=== PATIENT | female | born 1990 | race Caucasian/White ===

== ENCOUNTER 2023-02-21 15:25 | Emergency (ER) | payer SELFPAY ==
--- OUTSIDE RECORDS SUMMARY | 2023-02-21 15:42 | XMS REPORT | Continuity of Care Document ---
:1990 Author Organization [facility] t Address [address] [place] [address] Care Team Providers Name Role Phone Eri Parra Attending Clinician Unavailable Chavez Schneider Attending Clinician Unavailable Venkat Roque Attending Clinician Unavailable Diana Alcantar Attending Clinician Unavailable Ramon Breen Attending Clinician Unavailable SIDNEY CHAIREZ Attending Clinician Unavailable YONI SANDOVAL Attending Clinician Unavailable JAM HOWARD Attending Clinician Unavailable BENJIE AGARWAL Attending Clinician Unavailable TYRONE SZYMANSKI Attending Clinician Unavailable Problems This patient has no known problems. Allergies, Adverse Reactions, Alerts This patient has no known allergies or adverse reactions. Medications This patient has no known medications. Procedures This patient has no known procedures. Encounters Start End Encounter Admission Attending Care Care Encounter Source Date/Time Date/Time Type Type Clinicians Facility Department ID 2022-12-31 Inpatient [facility] [id number] [facility] 11:25:24 [id number] [place] 2022-12-21 Inpatient [facility] [id number] [facility] 09:41:14 [id number] [place] 2022-12-13 2022-12-13 Emergency ER Fidel [facility] [id number] [place] 22:46:00 23:31:00 Eri -[id number] Counts include 234 beds at the [facility] 2022-09-30 2022-09-30 Emergency ER Wyatt [facility] [id number] [place] 17:01:00 20:02:00 Chavez [id number] Counts include 234 beds at the [facility] 2022-05-28 2022-05-28 Emergency ER Jude [facility] [id number] [place] 00:30:00 01:30:00 Venkat -[id number] Counts include 234 beds at the [facility] 2022-04-13 2022-04-14 Emergency ER Catanescu, [facility] [id number] [place] 21:03:00 00:31:00 Diana -[id number] Counts include 234 beds at the [facility] 2022-02-28 2022-02-28 Emergency ER Catanescu, [facility] [id number] [place] 13:28:00 14:14:00 Diana -[id number] Counts include 234 beds at the [facility] 2022-01-26 2022-01-26 Emergency ER , [facility] [id number] [place] 06:27:00 08:04:00 Ramon -[id number] Counts include 234 beds at the [facility] 2021-11-30 2021-11-30 Emergency ER MIHAELA, [facility] [id number] [place] 20:35:00 21:02:00 SIDNEY -[id number] Counts include 234 beds at the [facility] 2021-10-03 2021-10-03 Emergency ER JAIME, [facility] [id number] [place] 12:06:00 12:44:00 YONI -[id number] Counts include 234 beds at the [facility] 2021-08-09 2021-08-09 Emergency ER ANITA, [facility] [id number] [place] 12:31:00 13:27:00 JAM -[id number] Counts include 234 beds at the [facility] 2021-05-24 2021-05-24 Emergency ER JAIME, [facility] [id number] [place] 14:21:00 16:55:00 YONI -[id number] Counts include 234 beds at the [facility] 2017-08-11 2017-08-11 Emergency ER STEFANO, [facility] [id number] [place] 22:05:00 23:21:00 BENJIE -[id number] Counts include 234 beds at the [facility] 2017-01-15 2017-01-15 Emergency ER , [facility] [id number] [place] 18:29:00 19:24:00 WAS -[id number] Counts include 234 beds at the [facility] Results This patient has no known results.
[2023-02-21 16:17] LABS: Specific Gravity 1.027 (1.005-1.030); Urine Bacteria <20 /HPF (<20); Urine Bilirubin NEGATIVE (Negative); Urine Blood Negative (Negative); Urine Clarity Clear (Clear); Urine Color Yellow (Yellow); Urine Crystals Unidentified Few /HPF (None Seen); Urine Glucose NEGATIVE (Negative); Urine Mucus 2+ /HPF (None Seen); Urine Protein TRACE (Negative); Urine RBC <5 /HPF (None Seen); Urine Urobilinogen Normal (Normal); Urine WBC Clump Rare /HPF (None Seen); Urine pH 5.5 (5.0-7.0)
--- NOTE | 2023-02-21 17:15 | ER ---
Nurse's Notes [facility] Name: Dayami Houston Age: 32 yrs Sex: Female : 1990 Arrival Date: 02/21/2023 Time: 15:25 Bed IW2 Private MD: Diagnosis: Low back pain;Pain in throat Presentation: 02/21 15:37 Chief complaint: Patient states: she is having low back pain that started a couple of ap3 weeks ago and sore throat that started approx one week ago. Coronavirus screen: At this time, the client does not indicate any symptoms associated with coronavirus-19. Ebola Screen: No symptoms or risks identified at this time. Initial Sepsis Screen:. Initial Sepsis Screen: Does the patient meet any 2 criteria? No. Patient's initial sepsis screen is negative. Does the patient have a suspected source of infection? No. Patient's initial sepsis screen is negative. Risk Assessment: Do you want to hurt yourself or someone else? Patient reports no desire to harm self or others. Onset of symptoms was 2022. 15:37 Method Of Arrival: Ambulatory ap3 15:37 Acuity: TRI 3 ap3 17:13 Note attempted to call patient at 1605 and 1652 for labs. patient was not found in ap3 lobby. Triage Assessment: 15:40 General: Appears in no apparent distress. Behavior is anxious. Pain: Complains of pain ap3 in low back area \T\ throat. Neuro: Level of Consciousness is awake, alert, obeys commands, Oriented to person, place, time, situation. Cardiovascular: Patient's skin is warm and dry. Respiratory: Airway is patent Respiratory effort is even, unlabored, Respiratory pattern is regular, symmetrical. Musculoskeletal: Range of motion: intact in all extremities. 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 - Social history:: Smoking status: Patient reports the use of cigarette tobacco products, denies chronic smoking, but will smoke occasionally. Screenin:41 [facility] ED Fall Risk Assessment (Adult) History of falling in the last 3 months, ap3 including since admission No falls in past 3 months (0 pts). Abuse screen: Denies threats or abuse. Nutritional screening: No deficits noted. Tuberculosis screening: No symptoms or risk factors identified. Vital Signs: 15:37 BP 131 / 81; Pulse 112; Resp 18; Temp 98.5; Pulse Ox 100% ; Weight 58.97 kg; ap3 ED Course: 15:28 Patient arrived in ED. mr 15:29 Katarina Devine FNP-C is [facility]. ap3 15:39 Triage completed. ap3 15:41 Tramaine Euceda MD is Attending Physician. kb 15:41 Arm band placed on right wrist. ap3 16:05 Urinalysis w/ reflexes Sent. zm 16:05 Test, Urine Sent. zm Administered Medications: No medications were administered Outcome: 17:14 Discharge ordered by . kb 17:30 Patient left the ED. Signatures: Katarina Devine FNP-C FNP-Ckb Rivera Lizbeth GriffithDayami, RN RN ap3 Bridgette Emanuel
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
[2023-02-21 17:58] VITALS: BP 131/81; TEMP 98.5; O2SAT 100
== END 2023-02-21 17:30 | disposition home or self-care (01) ==
LOC: ER 15:25
DX: M54.50 Low back pain, unspecified (principal); R07.0 Pain in throat
CPT/HCPCS: 81001; 81025; 99282

== ENCOUNTER 2023-08-11 21:16 | Emergency (ER) | payer SELFPAY ==
--- OUTSIDE RECORDS SUMMARY | 2023-08-11 21:19 | XMS REPORT | Continuity of Care Document ---
:1990 Author Organization [facility] t Address [address] [place] [id number] Care Team Providers Name Role Phone STEFFI ADLER Attending Clinician Unavailable Eri Parra Attending Clinician Unavailable CARMEN BARTLETT Attending Clinician Unavailable WENDY CARY Attending Clinician Unavailable CIRO SALCIDO Attending Clinician Unavailable SIDNEY CHAIREZ MD(DO NOT USE) Attending Clinician UnavailYONI Diehl Attending Clinician Unavailable JAM HOWARD Attending Clinician [...] Type Clinicians Facility Department ID 2022-12-31 Inpatient [facility] [id number] [facility] 11:25:24 [id number] [place] 2022-12-21 Inpatient [facility] [id number] [facility] 09:41:14 [id number] [place] 2023-05-01 2023-05-01 Emergency ER NAYELY, [facility] [id number] [place] 20:38:00 21:20:00 STEFFI -[id number] Formerly [facility] 2022-12-13 2022-12-13 Emergency ER Fidel [facility] [id number] [place] 22:46:00 23:31:00 Eri -[id number] Former[facility] 2022-09-30 2022-09-30 Emergency ER TRI [facility] [id number] [place] 17:01:00 20:02:00 CARMEN -[id number] Former[facility] 2022-05-28 2022-05-28 Emergency ER LUIS DANIEL, [facility] [id number] [place] 00:30:00 01:30:00 WENDY -[id number] Formerly [facility] 2022-04-13 2022-04-14 Emergency ER CATANESCU, [facility] [id number] [place] 21:03:00 00:31:00 STEFFI -[id number] Former[facility] 2022-02-28 2022-02-28 Emergency ER CATANESCU, [facility] [id number] [place] 13:28:00 14:14:00 STEFFI -[id number] Former[facility] 2022-01-26 2022-01-26 Emergency ER , [facility] [id number] [place] 06:27:00 08:04:00 CIRO -[id number] [facility] 2021-11-30 2021-11-30 Emergency ER MIHAELA, [facility] [id number] [place] 20:35:00 21:02:00 SIDNEY -[id number] [facility] 2021-10-03 2021-10-03 Emergency ER JAIME, [facility] [id number] [place] 12:06:00 12:44:00 YONI -[id number] [facility] 2021-08-09 2021-08-09 Emergency ER HOWARD, [facility] [id number] [place] 12:31:00 13:27:00 JAM -[id number] [facility] 2021-05-24 2021-05-24 Emergency ER SANDOVAL, [facility] [id number] [place] 14:21:00 16:55:00 YONI -[id number] [facility] 2017-08-11 2017-08-11 Emergency ER STEFANO, [facility] [id number] [place] 22:05:00 23:21:00 BENJIE [id number] [facility] 2017-01-15 2017-01-15 Emergency ER , [facility] [id number] [place] 18:29:00 19:24:00 TYRONE -[id number] [facility] Results This patient has no known results.
[2023-08-11 22:05] LABS: Absolute Lymphocytes (CBC) 2.4 K/uL (0.7-4.9); Hematocrit 34.4 % (36.0-45.0); Lymphocytes % 23.2 % (15.3-44.8); MCV 85.9 fL (80-100); Platelets 378 thou/uL (152-406); RBC Red Blood Cell Count 4.01 M/uL (3.86-4.86)
[2023-08-11 22:11] LABS: Methadone ND (NEGATIVE)
[2023-08-11] MEDS ORDERED: ONDANSETRON 4 MG/2 ML VIAL ONE (22:11)
[2023-08-11] MEDS ORDERED: FAMOTIDINE 20 MG/2 ML VIAL IV ONE (22:11)
[2023-08-11] MEDS ORDERED: MORPHINE 4 MG/ML SYR ONE (22:11)
[2023-08-11] MEDS ORDERED: NA CHLORIDE 0.9% 1,000 ML ONE (22:11)
[2023-08-11 22:12] LABS: Urine Bacteria <20 /HPF (<20); Urine Bilirubin NEGATIVE (Negative); Urine Blood Negative (Negative); Urine Clarity Extremely Turbid (Clear); Urine Color Yellow (Yellow); Urine Glucose NEGATIVE (Negative); Urine Mucus 4+ /HPF (None Seen); Urine Protein 1+ (Negative); Urine RBC <5 /HPF (None Seen); Urine Urobilinogen Normal (Normal); Urine pH 6.5 (5.0-7.0)
[2023-08-11 22:14] LABS: Barbiturates NEGATIVE (NEGATIVE); Benzodiazepines NEGATIVE (NEGATIVE); Cocaine NEGATIVE (NEGATIVE); METHAMPHETAM POSITIVE (NEGATIVE); Opiates NEGATIVE (NEGATIVE); Phencyclidine NEGATIVE (NEGATIVE); THC Cannibis NEGATIVE (NEGATIVE)
[2023-08-11 22:33] LABS: Albumin 3.5 g/dL (3.4-5.0); Bilirubin Total 0.1 mg/dL (0.2-1.0); Protein, Total 7.6 g/dL (6.4-8.2)
--- NOTE | 2023-08-11 22:37 | RAD REPORT ---
EXAM DESCRIPTION: US - Abdomen Exam Limited - 08/11/2023 10:23 pm CLINICAL HISTORY: Abdominal pain. COMPARISON: None. FINDINGS: The gallbladder wall is not thickened. A gallstone is not seen. The biliary tree is normal caliber. IMPRESSION: Unremarkable gallbladder ultrasound.
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
--- NOTE | 2023-08-12 00:19 | ER ---
Nurse's Notes [facility] Name: Dayami Houston Age: 33 yrs Sex: Female : 1990 Arrival Date: 08/11/2023 Time: 21:16 Bed 14 Private MD: Diagnosis: Infectious gastroenteritis and colitis, unspecified;Leiomyoma of uterus, unspecified;Intervertebral disc disorders with radiculopathy, lumbar region Presentation: 08/11 21:21 Chief complaint: Patient states: Patient C/O lower abdominal pain of 7 with vomiting x pf1 8 episodes,onset this AM with left lower back pain that radiates down left leg,onset 2 weeks. Patient stated was treated at [facility] for pancreatitis approximately 1 week ago. Coronavirus screen: Vaccine status: Patient reports being unvaccinated. Client denies travel out of the [place] in the last 14 days. Client presents with at least one sign or symptom that may indicate coronavirus-19. Ebola Screen: Patient negative for fever greater than or equal to 101.5 degrees Fahrenheit, and additional compatible Ebola Virus Disease symptoms. Initial Sepsis Screen: Does the patient meet any 2 criteria? No. Patient's initial sepsis screen is negative. Does the patient have a suspected source of infection? No. Patient's initial sepsis screen is negative. Risk Assessment: Do you want to hurt yourself or someone else? Patient reports no desire to harm self or others. 21:21 Method Of Arrival: Ambulatory pf1 21:21 Acuity: TRI 3 pf1 21:35 Onset of symptoms was August 11, 2023. 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 Last tetanus immunization: > 10 years ago Flu vaccine is not up to date. - Social history:: Smoking status: Patient reports the use of cigarette tobacco products, smokes one-half pack cigarettes per day, Patient uses street drugs, Methamphetamine (Meth) Patient/guardian denies using alcohol. - Family history:: not pertinent. - Hospitalizations: : No recent hospitalization is reported. Screenin:00 [facility] ED Fall Risk Assessment (Adult) History of falling in the last 3 months, ha1 including since admission No falls in past 3 months (0 pts) Confusion or Disorientation No (0 pts) Intoxicated or Sedated No (0 pts) Score/Fall Risk Level 0 - 2 = Low Risk Oriented to surroundings, Maintained a safe environment, Educated pt \\T\\ family on fall prevention, incl call for assistance when getting out of bed, Hourly rounding (assess needs \\T\\ fall precautionary measures) done. 22:07 Abuse screen: Denies threats or abuse. Denies injuries from another. Nutritional ha1 screening: No deficits noted. Tuberculosis screening: No symptoms or risk factors identified. Assessment: 21:35 General: Appears uncomfortable, Behavior is calm, cooperative. Pain: Complains of pain ha1 in abdomen Pain does not radiate. Pain currently is 8 out of 10 on a pain scale. Quality of pain is described as throbbing. Neuro: Level of Consciousness is awake, alert, obeys commands, Oriented to person, place, time, situation, Cardiovascular: Capillary refill < 3 seconds Patient's skin is warm and dry. Respiratory: Airway is patent Respiratory effort is even, unlabored, Respiratory pattern is regular, symmetrical. GI: Abdomen is flat, non-distended, Bowel sounds present X 4 quads. Reports lower abdominal pain, nausea, vomiting. : No signs and/or symptoms were reported regarding the genitourinary system. Derm: Skin is pink, warm \\T\\ dry. Musculoskeletal: Circulation, motion, and sensation intact. Range of motion: intact in all extremities. 22:32 Reassessment: Patient and/or family updated on plan of care and expected duration. Pain ha1 level reassessed. Patient is alert, oriented x 3, equal unlabored respirations, skin warm/dry/pink. pain /10. 23:00 Reassessment: Patient and/or family updated on plan of care and expected duration. Pain ha1 level reassessed. Patient is alert, oriented x 3, equal unlabored respirations, skin warm/dry/pink. states " I am starting to feel nause". 08/12 00:10 Reassessment: requesting to be discharge notified Dr. Trujillo. refused medications. ha1 Vital Signs: 08/11 21:21 BP 109 / 75; Pulse 85; Resp 18; Temp 97.9; Pulse Ox 98% on R/A; Weight 59.87 kg; Height pf1 5 ft. 2 in. ; Pain 7/10; 22:34 BP 102 / 67; Pulse 65; Resp 17 S; Pulse Ox 100% on R/A; ha1 23:00 BP 100 / 68; Pulse 61; Resp 17 S; Pulse Ox 100% on R/A; ha1 08/12 00:00 BP 98 / 65; Pulse 62; Resp 17 S; Pulse Ox 100% on R/A; ha1 08/11 21:21 Body Mass Index 24.14 (59.87 kg, 157.48 cm) pf1 08/11 21:21 Pain Scale: Adult pf1 ED Course: 08/11 21:19 Patient arrived in ED. gm2 21:20 Omid Trujillo MD is Attending Physician. rn 21:30 Inserted saline lock: 20 gauge in right antecubital area, using aseptic technique. ha1 Blood collected. Inserted by [employer]. 21:32 Triage completed. pf1 21:35 Patient has correct armband on for positive identification. Bed in low position. Call ha1 light in reach. Side rails up X 1. 21:35 Arm band placed on right wrist. ha1 21:50 Katharine Schmitz, TRINIDAD is Primary Nurse. ha1 22:05 CBC with Diff Sent. ha1 22:05 CMP Sent. ha1 22:05 Lipase Sent. ha1 22:05 Urinalysis w/ reflexes Sent. ha1 22:25 US Abdomen Limited In Process Unspecified. EDMS 23:26 CT Abd/Pelvis - IV Contrast Only In Process Unspecified. EDMS 08/12 00:26 No provider procedures requiring assistance completed. IV discontinued, intact, ha1 bleeding controlled, No redness/swelling at site. Pressure dressing applied. 00:27 Provided Education on: medication administration . ha1 Administered Medications: 08/11 21:58 Drug: NS 0.9% IV 1000 ml IV at 1 bolus Per protocol; 1000 mL bolus Route: IV; Rate: 1 ha1 bolus; Site: right antecubital; 08/12 00:29 Follow up: Response: No adverse reaction; IV Status: Completed infusion; IV Intake: ha1 1000ml 08/11 21:58 Drug: Ondansetron IVP 4 mg IVP once; over 2 minutes Route: IVP; Site: right antecubital;1 22:15 Follow up: Response: No adverse reaction; Nausea is decreased ha1 22:00 Drug: Famotidine IVP 20 mg IVP once; dilute with 10 mL 0.9% NaCl; give over 2 minutes ha1 Route: IVP; Site: right antecubital; 08/12 00:28 Follow up: Response: No adverse reaction ha1 08/11 22:02 Drug: morphine IVP or IV 4 mg IVP once over 4 mins Route: IVP; Infused Over: 4 mins; ha1 Site: right antecubital; 22:15 Follow up: Response: No adverse reaction; Pain is decreased; RASS: Alert and Calm (0) ha1 08/12 00:17 Not Given (Patient Refused): [id number] mg IVP once ha1 00:17 Not Given (Patient Refused): ns 0.9% 1000 ml IV at 1000 ml once ha Medication: 08/11 22:07 VIS not applicable for this client. ha1 Intake: 08/12 00:29 IV: 1000ml; Total: 1000ml. [facility] Outcome: 00:18 Discharge ordered by . rn 00:26 Discharged to home ambulatory, 1 00:26 Condition: stable 00:26 Discharge instructions given to patient, Instructed on discharge instructions, follow up and referral plans. medication usage, Demonstrated understanding of instructions, follow-up care, medications, Prescriptions given X 1, 00:29 Patient left the ED. [facility] Signatures: Dispatcher [employer] EDMS Omid Trujillo MD MD rn Ayala, Heidy RN RN ha1 Libia Baxter RN RN ricardo1 Sarita Frankel 2
[2023-08-12 01:35] VITALS: TEMP 97.9
[2023-08-12 01:38] VITALS: O2SAT 100
[2023-08-12 01:41] VITALS: BP 98/65
--- NOTE | 2023-08-12 15:33 | RAD REPORT ---
EXAM DESCRIPTION: CT Abdomen and Pelvis With Intravenous Contrast CLINICAL HISTORY: The patient is 33 years old and is Female; abd pain, vomiting [facility] MAIN TECHNIQUE: Axial computed tomography images of the abdomen and pelvis with intravenous contrast. S agittal and coronal reformatted images were created and reviewed. This CT exam was performed using one or more of the following dose reduction techniques: automated exposure control, adjustment of t he mA and/or kV according to patient size, and/or use of iterative reconstruction technique. COMPARISON: 08/07/2023 CT abdomen pelvis with contrast (images only, no report available for review) FINDINGS: LUNG BASES: Unremarkable. No mass. No consolidation. ABDOMEN: LIVER: Unremarkable. No mass. GALLBLADDER AND BILE DUCTS: Unremarkable. No calcified stones. No ductal dilation. PANCREAS: Unremarkable. No mass. No ductal dilation. SPLEEN: Unremarkable. No splenomegaly. ADRENALS: Unremarkable. No mass. KIDNEYS AND URETERS: Unremarkable. No solid mass. No hydronephrosis. STOMACH AND BOWEL: Multiple prominent fluid-filled but not pathologically enlarged small bowel loop s in the left upper and mid abdomen. Nonspecific but may reflect mild enteritis. No evidence of small or large bowel obstruction. PELVIS: APPENDIX: No findings to suggest acute appendicitis. BLADDER: Unremarkable. No mass. REPRODUCTIVE: Small focus of enhancement along the anterior right uterine fundus, unchanged from pr ior exam, favoring a noncalcified uterine fibroid. ABDOMEN and PELVIS: INTRAPERITONEAL SPACE: Unremarkable. No free air. No significant fluid collection. BONES/JOINTS: Moderate-sized L5-S1 central disc protrusion with mild associated canal narrowing. No acute osseous abnormality. No dislocation. SOFT TISSUES: Unremarkable. VASCULATURE: Unremarkable. No abdominal aortic aneurysm. LYMPH NODES: Multiple prominent but not pathologically enlarged bilateral inguinal, external iliac chain, and retroperitoneal lymph nodes. IMPRESSION: 1. Multiple prominent fluid-filled but not pathologically enlarged small bowel loops i n the left upper and mid abdomen. Nonspecific but may reflect mild enteritis. 2. Multiple prominent but not pathologically enlarged bilateral inguinal, external iliac chain, and retroperitoneal lymph nodes. Nonspecific, but unchanged from prior exam and favored to be reactive . Consider follow-up evaluation with repeat CT abdomen pelvis in 3 months to evaluate for resolution/ stability. Alternatively, if more remote prior images are available for comparison, recommend compari son to evaluate for chronicity/evolution.L. 2. Otherwise, no acute findings in the abdomen or pelvis. 3. Small focus of enhancement along the anterior right uterine fundus, unchanged from prior exam, f avoring a noncalcified uterine fibroid. Consider further characterization by nonemergent pelvic ult prosper. Electronically signed by: Elder Warren MD 08/11/2023 11:50 PM CDT Due to temporary technical issues with the PACS/Fluency reporting system, reports are being signed by the in house radiologists without review as a courtesy to insure prompt reporting. The interpreting radiologist is fully responsible for the content of the report.
== END 2023-08-12 00:29 | disposition home or self-care (01) ==
LOC: ER 21:16
DX: A09 Infectious gastroenteritis and colitis, unspecified (principal); D25.9 Leiomyoma of uterus, unspecified; M51.16 Intervertebral disc disorders with radiculopathy, lumbar region; F17.210 Nicotine dependence, cigarettes, uncomplicated; F15.90 Other stimulant use, unspecified, uncomplicated
CPT/HCPCS: 36415; 74177; 76705; 80053; 80307; 81001; 83690; 85025; 96361; 96374; 96375; 99284; J2405; J7030; Q9967

== ENCOUNTER → 2023-11-06 | Emergency (ER) | payer SELFPAY ==
[~2023-11-06] MED LIST: DIAZEPAM 5 MG TABLET ONE; HYDROCODONE/APAP 5/325 MG TAB ONE; KETOROLAC 30 MG/ML INJ ONE
--- OUTSIDE RECORDS SUMMARY | 2023-11-06 04:47 | XMS REPORT | Continuity of Care Document ---
Author Name Unknown Address [address] [place] [address] [place], [place] [id number] [facility] Address [address] [place] [address] [address] [place] [address] Care Team Providers Care Fiscal Services Director Name Role Phone Eri Parra Attending Clinician Unavailab STEFFI Dorman Attending Clinician Unavailable CARMEN BARTLETT Attending Clinician Unavailab WENDY Swain Attending Clinician Unavailable CIRO SALCIDO Attending Clinician Unavailable SIDNEY CHAIREZ MD(DO NOT USE) Attending Clinic YONI Chapin Attending Clinician Unavailable JAM HOWARD Attending Clinician UnavailBENJIE Hong Attending Clinician Unavail TYRONE Reed Attending Clinician Unavailable Encounters Start Date/Time End Date/Time Encounter Type Admission Type Attending Clinicians Care Facility Care Department Encounter ID Source 2022-12-31 11:25:24 Inpatient [facility] [id number] [facility] 2022-12-21 09:41:14 Inpatient [facility] [id number] [facility] 2023-10-12 17:13:00 2023-10-12 19:25:00 Emergency ER Eri Parra [facility] [id number] [facility] 2023-05-01 20:38:00 2023-05-01 21:20:00 Emergency ER STEFFI ADLER [facility] [id number] [facility] 2022-12-13 22:46:00 2022-12-13 23:31:00 Emergency ER Eri Parra [facility] [id number] [facility] 2022-09-30 17:01:00 2022-09-30 20:02:00 Emergency ER CARMEN BARTLETT [facility] [id number] [facility] 2022-05-28 00:30:00 2022-05-28 01:30:00 Emergency ER WENDY CARY [facility] [id number] [facility] 2022-04-13 21:03:00 2022-04-14 00:31:00 Emergency ER STEFFI ADLER [facility] [id number] [facility] 2022-02-28 13:28:00 2022-02-28 14:14:00 Emergency ER STEFFI ADLER [facility] [id number] [facility] 2022-01-26 06:27:00 2022-01-26 08:04:00 Emergency ER CIRO [facility] [id number] [facility] 2021-11-30 20:35:00 2021-11-30 21:02:00 Emergency ER SIDNEY CHAIREZ [facility] [id number] [facility] 2021-10-03 12:06:00 2021-10-03 12:44:00 Emergency ER YONI SANDOVAL [facility] [id number] [facility] 2021-08-09 12:31:00 2021-08-09 13:27:00 Emergency ER JAM HOWARD [facility] [id number] [facility] 2021-05-24 14:21:00 2021-05-24 16:55:00 Emergency ER YONI SANDOVAL [facility] [id number] [facility] 2017-08-11 22:05:00 2017-08-11 23:21:00 Emergency ER BENJIE AGARWAL [facility] [id number] [facility] 2017-01-15 18:29:00 2017-01-15 19:24:00 Emergency ER TYRONE SZYMANSKI [facility] [id number] [facility]
--- NOTE | 2023-11-06 06:08 | ER ---
Nurse's Notes [facility] Name: Dayami Houston Age: 33 yrs Sex: Female : 1990 Arrival Date: 11/06/2023 Time: 04:42 Bed 5 Private MD: Diagnosis: Sciatica, left side Presentation: 11/06 04:55 Chief complaint: Patient states: I had an L-5 fracture 8 months ago. I am having pain jb4 in my left leg that feels like my sciatic nerve and it has been like that for the past 2 weeks with no relief and its getting worse. Coronavirus screen: At this time, the client does not indicate any symptoms associated with coronavirus-19. Ebola Screen: No symptoms or risks identified at this time. Initial Sepsis Screen: Does the patient meet any 2 criteria? No. Patient's initial sepsis screen is negative. Does the patient have a suspected source of infection? No. Patient's initial sepsis screen is negative. Risk Assessment: Do you want to hurt yourself or someone else? Patient reports no desire to harm self or others. Onset of symptoms was November 06, 2023. Transition of care: patient was not received from another setting of care. 04:55 Method Of Arrival: Ambulatory jb4 04:55 Acuity: TRI 4 jb4 Triage Assessment: 04:58 General: Appears in no apparent distress. uncomfortable, slender, Behavior is calm, vc1 cooperative, appropriate for age. Pain: Complains of pain in low back area Pain radiates to left leg Pain currently is 10 out of 10 on a pain scale. Quality of pain is described as sharp, shooting, Pain began 2 weeks Aggravated by increased activity, repositioning. EENT: No deficits noted. No signs and/or symptoms were reported regarding the EENT system. Neuro: Level of Consciousness is awake, alert, obeys commands, Oriented to person, place, time, situation, Appropriate for age. Cardiovascular: No deficits noted. Respiratory: Airway is patent Respiratory effort is even, unlabored, Respiratory pattern is regular, symmetrical. GI: No deficits noted. No signs and/or symptoms were reported involving the gastrointestinal system. : No deficits noted. No signs and/or symptoms were reported regarding the genitourinary system. Derm: No deficits noted. No signs and/or symptoms reported regarding the dermatologic system. Musculoskeletal: Circulation, motion, and sensation intact. Range of motion: intact in all extremities. 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 - Social history:: Smoking status: Patient reports the use of cigarette tobacco products, smokes one-half pack cigarettes per day. Screenin:56 [facility] ED Fall Risk Assessment (Adult) History of falling in the last 3 months, vc1 including since admission No falls in past 3 months (0 pts) Confusion or Disorientation No (0 pts) Intoxicated or Sedated No (0 pts) Impaired Gait No (0 pts) Mobility Assist Device Used No (0 pt) Altered Elimination No (0 pt) Score/Fall Risk Level 0 - 2 = Low Risk Oriented to surroundings, Maintained a safe environment, Educated pt \T\ family on fall prevention, incl call for assistance when getting out of bed. Abuse screen: Denies threats or abuse. Nutritional screening: No deficits noted. Tuberculosis screening: No symptoms or risk factors identified. Assessment: 04:59 Reassessment: See triage assessment. Neuro: Judd Agitation-Sedation Scale (RASS): 0 vc1 - Alert and Calm Level of Consciousness is awake, alert, obeys commands, Oriented to person, place, time, situation, Appropriate for age. 05:51 Reassessment: Patient and/or family updated on plan of care and expected duration. Pain tm6 level reassessed. Patient is alert, oriented x 3, equal unlabored respirations, skin warm/dry/pink. Patient states feeling better. Patient states symptoms have improved. 06:22 Reassessment: Patient states feeling better. Patient states symptoms have improved. tm6 Vital Signs: 04:55 Weight 58.97 kg; Height 5 ft. 2 in. ; jb4 04:56 BP 135 / 91; Pulse 113; Resp 16; Temp 98.1; Pulse Ox 99% ; vc1 05:50 BP 121 / 82; Pulse 106; Pulse Ox 100% on R/A; Pain 2/10; tm6 06:21 BP 112 / 65; Pulse 97; Pulse Ox 99% on R/A; Pain 2/10; tm6 04:55 Body Mass Index 23.78 (58.97 kg, 157.48 cm) jb4 05:50 Pain Scale: Adult tm6 06:21 Pain Scale: Adult tm6 ED Course: 04:45 Patient arrived in ED. jj6 04:46 Nnamdi Mays DO is Attending Physician. ms3 04:56 Triage completed. jb4 04:56 Arm band placed on right wrist. jb4 04:57 Patient has correct armband on for positive identification. Bed in low position. Call vc1 light in reach. Pulse ox on. NIBP on. 05:51 Erendira Canales, RN is Primary Nurse. tm6 05:52 Primary Nurse role handed off by Erendira Canales RN tm6 05:53 Erendira Canales, TRINIDAD is Primary Nurse. tm6 06:22 Provided Education on: referral to spine surgeon. tm6 06:22 No provider procedures requiring assistance completed. Patient did not have IV access tm6 during this emergency room visit. Administered Medications: 05:03 Drug: HYDROcodone-acetaminophen PO 5 mg-325 mg 1 tabs PO once Route: PO; tm6 05:03 Drug: Diazepam PO 5 mg PO once Route: PO; tm6 05:03 Drug: Ketorolac IM 15 mg IM once Route: IM; Site: right ventrogluteal; tm6 Medication: 04:56 VIS not applicable for this client. vc1 Outcome: 06:08 Discharge ordered by MD. ms3 06:22 Discharged to home ambulatory, with family, tm6 06:22 Condition: stable 06:22 Discharge instructions given to patient, Instructed on discharge instructions, follow up and referral plans. medication usage, Demonstrated understanding of instructions, follow-up care, medications, Prescriptions given X 2, 06:23 Patient left the ED. tm6 Signatures: Kamaljit Longo RN RN jb4 Nnamdi Mays DO DO ms3 JeffAliya jj6 Yasmine Langford RN RN vc1 Erendira Canales RN RN tm6
--- NOTE | 2023-11-06 06:08 | EDPHYS ---
Physician Documentation [facility] Name: Dayami Houston Age: 33 yrs Sex: Female : 1990 Arrival Date: 11/06/2023 Time: 04:42 Bed 5 Private MD: ED Physician Nnamdi Mays HPI: 11/06 04:54 This 33 yrs old Female presents to ER via Unassigned with complaints of Back Pain, Leg ms3 Pain. 04:54 33-year-old female with no past medical history presents to the emergency department ms3 for back pain with left-sided lower leg pain. Patient states she fractured her L5 8 months ago and has had persistent pain since that time. Patient denies any alleviating or inciting factors. Patient states her pain is 10/10. Patient denies any alleviating or inciting factors. [employer]: 04:57 LMP 10/13/2023, unknown vc1 Historical: - Allergies: 04:56 No Known Allergies; jb4 - PMHx: 04:56 Pancreatitis; jb4 - PSHx: 04:56 section; Ligation of fallopian tube; jb4 - Immunization history:: Adult Immunizations up to date. - Social history:: Smoking status: Patient reports the use of cigarette tobacco products, smokes one-half pack cigarettes per day. ROS: 04:54 Constitutional: Negative for fever, and chills. Neck: Negative for injury, pain, and ms3 swelling, Cardiovascular: Negative for chest pain, and palpitations. Respiratory: Negative for shortness of breath, cough, wheezing, and pleuritic chest pain, Abdomen/GI: Negative for abdominal pain, nausea, vomiting, diarrhea, and constipation, 04:54 Back: Positive for Back pain, Exam: 04:55 Constitutional: This is a well developed, well nourished patient who is awake, alert, ms3 and in no acute distress. Head/Face: Normocephalic, atraumatic. Chest/axilla: Normal chest wall appearance and motion. Nontender with no deformity. Cardiovascular: Regular rate and rhythm with a normal S1 and S2. No gallops, murmurs, or rubs. Normal PMI, no JVD. No pulse deficits. Respiratory: Lungs have equal breath sounds bilaterally, clear to auscultation and percussion. No rales, rhonchi or wheezes noted. No increased work of breathing, no retractions or nasal flaring. Abdomen/GI: Soft, non-tender, with normal bowel sounds. No distension or tympany. No guarding or rebound. No evidence of tenderness throughout. Back: No spinal tenderness. No costovertebral tenderness. Full range of motion. Skin: Warm, dry with normal turgor. Normal color with no rashes, no lesions, and no evidence of cellulitis. MS/ Extremity: Pulses equal, no cyanosis. Neurovascular intact. Full, normal range of motion. Vital Signs: 04:55 Weight 58.97 kg; Height 5 ft. 2 in. ; jb4 04:56 BP 135 / 91; Pulse 113; Resp 16; Temp 98.1; Pulse Ox 99% ; vc1 05:50 BP 121 / 82; Pulse 106; Pulse Ox 100% on R/A; Pain 2/10; tm6 06:21 BP 112 / 65; Pulse 97; Pulse Ox 99% on R/A; Pain 2/10; tm6 04:55 Body Mass Index 23.78 (58.97 kg, 157.48 cm) jb4 05:50 Pain Scale: Adult tm6 06:21 Pain Scale: Adult tm6 MDM: 04:53 Patient medically screened. ms3 04:55 Differential diagnosis: ruptured disc, sprain, muscle spasm. ms3 06:08 Data reviewed: vital signs, nurses notes, and as a result, I will discharge patient. I ms3 considered the following discharge prescriptions or medication management in the emergency department Medications were administered in the Emergency Department. See MAR. Historians other than the Patient: Spouse/Significant Other: . Counseling: I had a detailed discussion with the patient and/or guardian regarding the historical points, exam findings, and any diagnostic results supporting the discharge/admit diagnosis, the need for outpatient follow up, to return to the emergency department if symptoms worsen or persist or if there are any questions or concerns that arise at home. ED course: On reevaluation patient symptoms improved, patient is alert and oriented x 4, no apparent distress, nontoxic-appearing, without bowel or bladder incontinence, ambulatory in the emergency department. Patient to follow-up with Dr. Briscoe in 2 to 3 days. Patient understands and agrees with plan. All questions were answered. Return precautions discussed include worsening symptoms, or any other concerns. Administered Medications: 05:03 Drug: HYDROcodone-acetaminophen PO 5 mg-325 mg 1 tabs PO once Route: PO; tm6 05:03 Drug: Diazepam PO 5 mg PO once Route: PO; tm6 05:03 Drug: Ketorolac IM 15 mg IM once Route: IM; Site: right ventrogluteal; tm6 Disposition Summary: 11/06/23 06:08 Discharge Ordered Notes: Location: Home ms3 Condition: Stable ms3 Diagnosis - Sciatica, left side ms3 Followup: ms3 - With: Private Physician - When: 2 - 3 days - Reason: Recheck today's complaints Discharge Instructions: - Discharge Summary Sheet ms3 - Sciatica ms3 - Sciatica, [id number] ms3 Forms: - Medication Reconciliation Form ms3 - Thank You Letter ms3 - Antibiotic Education ms3 - Prescription Opioid Use ms3 - Patient Portal Instructions ms3 - Leadership Thank You Letter ms3 Prescriptions: - Ibuprofen 600 mg Oral Tablet - take 1 tablet ORAL route every 6 hours As needed take with food; 30 tablet; ms3 Refills: 0, Product Selection Permitted - Cyclobenzaprine 10 mg Oral Tablet - take 1 tablet ORAL route every 8 hours As needed; 30 tablet; Refills: 0, ms3 Product Selection Permitted Signatures: Kamaljit Longo RN RN jb4 Nnamdi Mays DO DO ms3 Erendira Canales, TRINIDAD RN tm6 Corrections: (The following items were deleted from the chart) 04:55 04:54 33-year-old female with no past medical history presents to the emergency ms3 department for back pain with left-sided lower leg pain. Patient states she fractured her L5 8 months ago and has had persistent pain since that time. Patient denies any alleviating or inciting factors. Patient states her pain is 10/10. ms3
[2023-11-06 06:37] VITALS: TEMP 98.1; O2SAT 99
[2023-11-06 06:56] VITALS: BP 112/65
== END ==
LOC: ER 04:42
DX: M54.32 Sciatica, left side (principal)
CPT/HCPCS: 96372; 99284

== ENCOUNTER 2024-06-14 22:11 | Emergency (ER) | payer SELFPAY, OTHER ==
--- OUTSIDE RECORDS SUMMARY | 2024-06-14 22:15 | XMS REPORT | Continuity of Care Document ---
Author Name Unknown Address [address] [facility] José Manuel. [address] [place] [address] [facility] Address [address] [facility]. [address] [place] [address] Care Team Providers Care Senior Java Programmer Name Role Phone Pcp, Patient Does Not Have A Primary Care Physic jean-paul Kamaljit Ramirez MD Attending Clinician [phone] Stiven Oliva Attending Clinician [phone] Kamaljit Ramirez MD Attending Clinician [phone] Jenny ABDI, Shivani Cooper Attending Clinician Unav Andrew Aldridge Attending Clinician Unavailable Pob, Adc Lab Main Attending Clinician Unavailabl e Radiology Attending Clinician Unavailable Jennyfer Gómez LVN Attending Clinician [phone] BILL AVALOS Attending Clinician Unavailable Ryan Talamantes MD, Jake Sousa Attending Clinician + Jd Sky MD Attending Clinician [phone] Alissa CARR, Irais Hernandes Attending Clinician + [phone] Emma Castro MD Attending Clinician [phone] Bill Avalos MD Attending Clinician CHRETIEN_F Attending Clinician Unavailable Eri Parra Attending Clinician Unavailab KOJO Ramirez Attending Clinician UnavailKojo Luis Attending Clinician STEFFI ADLER Attending Clinician Unavailable CARMEN BARTLETT Attending Clinician Unavailab WENDY Swain Attending Clinician Unavailable CIRO SALCIDO Attending Clinician Unavailable SIDNEY CHAIREZ MD(DO NOT USE) Attending Clinic jean-paul Unavailable YONI SANDOVAL Attending Clinician Unavailable JAM HOWARD Attending Clinician UnavailBENJIE Hong Attending Clinician Unavail able TYRONE SZYMANSKI Attending Clinician Unavailable Kamaljit Ramirez MD Admitting Clinician [phone] IRAIS MAXWELL Admitting Clinician Sushant Maxwell MD, Irais Hernandes Admitting Clinician [phone] CHRETIEN_F Admitting Clinician Unavailable Payers Payer Name Policy Type Policy Number Effective Date Expirati on Date Source Problems Condition Name Condition Details Condition Category Status Onset Date Resolution Date Last Treatment Date Treating Clinician Comments Source 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 Disease Active 4-11 00:00: 00 [facility] 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, 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, initial encounter Disease Active 2- 00:00: 00 [facility] Allergies, Adverse Reactions, Alerts Allergy Name Allergy Type Status Severity Reaction(s) Onset Date Inactive Date Treating Clinician Comments Source NO KNOWN ALLERGIE S Drug Class Active [facility] Social History Social Habit Start Date Stop Date Quantity Comments Source Gender identity [facility] History of tobacco use Passive smoker [facility] History of Social function 2024-03-21 00:00:00 2024-03-21 00:00:00 [facility] Tobacco Comment 2023-12-10 00:00:00 2023-12-10 00:00:00 Smokes 1/2 pack a day per patient [facility] Sex assigned at 1990 00:00:00 1990 00:00:00 [facility] Smoking Status Start Date Stop Date Source Tobacco smoking consumption unknown [facility] Smokes tobacco daily 2023-12-10 00:00:00 [facility] Medications Ordered Medication Name Filled Medication Name Start Date Stop Date Current Medication? Ordering Clinician Indication Dosage Frequency Signature (SIG) Comments Components Source NaCl 0.9% (NS) bolus infusion 1,000 mL 05-20 16:15: 00 05-20 17:55 :00 No 1000mL at 999 mL/hr, 1,000 mL, IV Infusion, ONCE, 1 dose, On Tue05/20/24 at 1115, ENRICO [facility] loperamide 2 mg capsule 05-20 00:00: 00 Yes [id number] 2mg Take 1 capsule by mouth every 6 (six) hours as needed for Diarrhea. [facility] metroNIDAZO LE 500 mg tablet 05-20 00:00: 00 05-28 04:59 :00 Yes [id number] 500mg Take 1 tablet by mouth every 8 (eight) hours for 7 days. [facility] iopamidol (ISOVUE-M 300-15 mL) intrathecal injection 15 mL 03-14 17:00: 00 03-14 15:51 :00 No [id number] 15mL 15 mL, Intratheca l, ONCE, 1 dose, On Tue03/14/24 at 1200, Routine [facility] lidocaine 1% (PF) (XYLOCAINE) injection 03-14 15:53: 30 03-14 15:53 :30 No PRN, Starting on Tue03/14/24 at 1053, Until Tue03/14/24 at 1053, Routine, Intra-op [facility] dexamethaso ne sod phos PF injection 03-14 15:53: 18 03-14 15:53 :18 No Epidural, PRN, Starting on Tue03/14/24 at 1053, Until Tue03/14/24 at 1053, Routine, Intra-op [facility] bupivacaine (preserv free) 0.5% (SENSORCAIN E MPF) injection 03-14 15:53: 02 03-14 15:53 :02 No PRN, Starting on Tue03/14/24 at 1053, Until Tue03/14/24 at 1053, Routine, Intra-op [facility] acetaminoph en (TYLENOL) tablet 650 mg 12-11 08:45: 59 Yes 650mg 650 mg, Oral, Q6HPRN, Starting on Tue12/11/23 at 0245, Until Discontinu ed, Routine, Pain (scale 1-3), Pain (scale 4-6) [facility] iron dextran (INFED) 1,000 mg in NaCl 0.9% (NS) 500 mL IV infusion 12-11 03:45: 00 12-11 05:37 :00 No 1000mg 1,000 mg, IV Infusion, ONCE, 1 dose, On 12/10/23 at 2145, Administer over 1 Hours, 500 mL [facility] iron dextran (INFED) 25 mg in NaCl 0.9% (NS) 100 mL IV piggyback 12-11 03:45: 00 12-11 04:30 :00 No 25mg 25 mg, IV Piggyback, ONCE, 1 dose, On 12/10/23 at 2145, Administer over 15 Minutes, 100 mL [facility] mirtazapine 15 mg tablet 12-11 00:00: 00 Yes 15mg Take 1 tablet by mouth at bedtime. [facility] buPROPion 100 mg tablet 12-11 00:00: 00 Yes 100mg Take 1 tablet by mouth every morning. [facility] lactulose 10 gram/15 mL solution 12-11 00:00: 00 Yes 15mL Take 15 mL by mouth in the morning. [facility] multivitami n tablet 12-10 17:30: 00 Yes 1{tbl} 1 tablet, Oral, DAILY, First dose on Tue12/10/23 at 1130, Until Discontinu ed, Routine [facility] enoxaparin (LOVENOX) injection 40 mg 12-10 15:00: 00 Yes 40mg 40 mg, Subcutaneo us, DAILY, First dose on 12/10/23 at 0900, Until Discontinu ed, Routine [facility] KCL (KLOR-CON M20) tablet 40 mEq 12-10 11:00: 00 12-10 10:16 :00 No 40meq 40 mEq, Oral, ONCE, 1 dose, On 12/10/23 at 0500, Routine [facility] lactated ringers IV infusion 500 mL 12-10 06:45: 00 12-11 03:04 :00 No 500mL at 999 mL/hr, 500 mL, Intravenou s, ONCE, 1 dose, On 12/10/23 at 0045, Routine [facility] diazePAM (VALIUM) injection 5 mg 12-10 05:39: 47 Yes 5mg 5 mg, Intravenou s, Q2HPRN, Starting on Tue12/09/23 at 2339, Until Discontinu ed, Routine, Agitation [facility] Lidocaine (LIDOCARE) 4 % patch 1 Patch 12-10 05:37: 47 Yes 1{patch } 1 Patch, Topical, Administer over 12 Hours, QDAILYPRN, Starting on Tue12/09/23 at 2337, Until Discontinu ed, Routine, Localized pain [facility] nicotine (NICODERM) 21 mg/24 hr patch 1 Patch 12-10 05:37: 06 Yes 1{patch } 1 Patch, Topical, Administer over 24 Hours, L09WPRO, Starting on Tue12/09/23 at 2337, Until Discontinu ed, Routine, nicotine withdrawal s [facility] iopamidol (ISOVUE 370-500 mL) injection 65 mL 12-10 03:45: 00 12-10 03:45 :00 No [id number] 65mL 65 mL, Intravenou s, ONCE, 1 dose, On Tue12/09/23 at 2145, Routine [facility] lactated ringers IV infusion 1,000 mL 12-10 03:30: 00 12-11 02:49 :51 No 1000mL at 150 mL/hr, 1,000 mL, IV Infusion, CONTINUOUS , Starting on Tue12/09/23 at 2130, Until Tue12/10/23 at 2049, [facility] peg-electro lyte soln (GOLYTELY) 236-22.74-6 .74 -5.86 gram solution 4,000 mL 12-10 03:00: 00 12-10 02:51 :00 No 4000mL 4,000 mL, Oral, ONCE, 1 dose, On Tue12/09/23 at 2100, [facility] NaCl 0.9% (NS) bolus infusion 2,000 mL 12-10 02:15: 00 12-10 03:48 :00 No 2000mL at 999 mL/hr, 2,000 mL, IV Piggyback, ONCE, 1 dose, On Tue12/09/23 at 2015, STAT [facility] KCL (KLOR-CON M20) tablet 40 mEq 06-29 09:30: 00 06-29 08:47 :00 No 40meq 40 mEq, Oral, ONCE, 1 dose, On Tue06/29/23 at 0430, Routine [facility] ibuprofen (IBU) tablet 800 mg 06-29 08:15: 00 06-29 08:47 :00 No 800mg 800 mg, Oral, ONCE, 1 dose, On Tue06/29/23 at 0315, [facility] NaCl 0.9% (NS) bolus infusion 1,000 mL 06-29 07:00: 00 06-29 08:53 :00 No 1000mL at 999 mL/hr, 1,000 mL, IV Infusion, ONCE, 1 dose, On Tue06/29/23 at 0200, [facility] ibuprofen 800 mg tablet 06-29 00:00: 00 Yes [id number] 100 800mg Take 1 tablet by mouth every 6 (six) hours as needed for Pain (scale 4-6). [facility] medroxyPROG ESTERone 10 mg tablet 06-29 00:00: 00 07-28 04:59 :00 No [id number] 100 Take 1 tablet by mouth every 8 (eight) hours for 7 days, THEN 1 tablet daily for 21 days. [facility] cefdinir 300 mg capsule 06-29 00:00: 00 07-14 04:59 :00 No [id number] 300mg Take 1 capsule by mouth every 12 (twelve) hours for 14 days. [facility] Vital Signs Vital Name Observation Time Observation Value Comments [facility] Systolic blood pressure 2024-05-20 17:55:00 113 [facility]Hg[facility] Diastolic blood pressure 2024-05-20 17:55:00 75 mm[Hg[facility] Heart rate 2024-05-20 17:55:00 92 /min [facility] Body temperature 2024-05-20 17:55:00 37.28 Cori [facility] Respiratory rate 2024-05-20 17:55:00 14 /min [facility] Oxygen saturation in Arterial blood by Pulse oximetry 2024-05-20 17:55:00 100 /min [facility] Body height 2024-05-20 15:15:00 157.5 cm [facility] Body weight 2024-05-20 15:15:00 68.04 kg [facility] BMI 2024-05-20 15:15:00 27.44 kg/m2 [facility] Systolic blood pressure 2024-03-21 19:12:00 128 mm[Hg] [facility] Diastolic blood pressure 2024-03-21 19:12:00 87 mm[Hg] [facility] Body temperature 2024-03-21 19:12:00 36.33 Cori [facility] Body weight 2024-03-21 19:12:00 68.811 kg [facility] BMI 2024-03-21 19:12:00 27.75 kg/m2 [facility] Systolic blood pressure 2024-03-14 15:50:00 105 mm[Hg] [facility] Diastolic blood pressure 2024-03-14 15:50:00 73 mm[Hg] [facility] Heart rate 2024-03-14 15:50:00 87 /min [facility] Respiratory rate 2024-03-14 15:50:00 16 /min [facility] Oxygen saturation in Arterial blood by Pulse oximetry 2024-03-14 15:50:00 100 /min [facility] Body temperature 2024-03-14 14:59:00 36.89 Cori [facility] Body temperature 2024-01-26 13:12:00 36.5 Cori [facility] Body weight 2024-01-26 13:12:00 64.683 kg [facility] BMI 2024-01-26 13:12:00 26.08 kg/m2 [facility] Systolic blood pressure 2023-12-11 22:25:00 105 mm[Hg[facility] Diastolic blood pressure 2023-12-11 22:25:00 66 mm[Hg] [facility] Heart rate 2023-12-11 22:25:00 84 /min [facility] Body temperature 2023-12-11 22:25:00 36.83 Cori [facility] Respiratory rate 2023-12-11 22:25:00 18 /min [facility] Oxygen saturation in Arterial blood by Pulse oximetry 2023-12-11 22:25:00 98 /min [facility] Body height 2023-12-10 01:24:00 157.5 cm [facility] Body weight 2023-12-10 01:24:00 58.968 kg [facility] BMI 2023-12-10 01:24:00 23.78 kg/m2 [facility] Systolic blood pressure 2023-06-29 08:52:46 107 mm[Hg] [facility] Diastolic blood pressure 2023-06-29 08:52:46 66 mm[Hg] [facility] Heart rate 2023-06-29 08:52:46 85 /min [facility] Respiratory rate 2023-06-29 08:52:46 18 /min [facility] Oxygen saturation in Arterial blood by Pulse oximetry 2023-06-29 08:52:46 99 /min [facility] Body temperature 2023-06-29 06:00:00 37.22 Cori [facility] Body height 2023-06-29 06:00:00 157.5 cm [facility] Body weight 2023-06-29 06:00:00 61.689 kg [facility] BMI 2023-06-29 06:00:00 24.87 kg/m2 [facility] Procedures Procedure Date / Time Performed Performing Clinician Source MR LUMBAR SPINE WO CONTRAST 2024-05-25 13:21:01 Coral Weller [facility] URINALYSIS 2024-05-20 15:42:00 Stiven Mcintosh [facility] POCT TEST 2024-05-20 15:42:00 Stiven Mcintosh [facility] TEST, SERUM 2024-05-20 15:30:00 Elmer Mcintosh [facility] COMP. METABOLIC PANEL ([id number]) 2024-05-20 15:30:00 Stiven Mcintosh [facility] CBC WITH DIFF 2024-05-20 15:30:00 Stiven Mcintosh [facility] IR SPINAL NERVE ROOT BLOCK/TRANSFORAMINAL LUMBAR/SACRUM WITH IMAGE 2024-03-14 16:03:00 Kamaljit Ramirez [facility] CT LUMBAR SPINE WO CONTRAST 2024-01-12 19:05:16 Laxmi Ayala [facility] BASIC METABOLIC PANEL (NA, K, CL, CO2, GLUCOSE, BUN, CREATININE, CA) 2023-12-11 10:34:00 Bryson Alvares [facility] MAGNESIUM 2023-12-10 09:37:00 Dennis Briscoe [facility] BASIC METABOLIC PANEL (NA, K, CL, CO2, GLUCOSE, BUN, CREATININE, CA) 2023-12-10 09:37:00 Dennis Briscoe [facility] HEPATITIS B SURFACE ANTIBODY 2023-12-10 09:37:00 Dennis Briscoe [facility] HCV ANTIBODY 2023-12-10 09:37:00 Dennis Briscoe [facility] HAV ANTIBODY (IGG AND IGM) 2023-12-10 09:37:00 Dennis Briscoe [facility] PHOSPHORUS 2023-12-10 05:50:00 Dennis Briscoe [facility] MAGNESIUM 2023-12-10 05:50:00 Dennis Briscoe [facility] FERRITIN SERUM 2023-12-10 05:50:00 Dennis Briscoe [facility] HEPATIC FUNCTION PANEL ([id number]) (ALB,T.PRO,BILI T,BU/BC,ALT,AST,ALK PHOS) 2023-12-10 05:50:00 Dennis Briscoe Jaden [facility] BASIC METABOLIC PANEL (NA, K, CL, CO2, GLUCOSE, BUN, CREATININE, CA) 2023-12-10 05:50:00 Dennis Briscoe [facility] HEPATITIS B SURFACE ANTIGEN 2023-12-10 05:50:00 Dennis Briscoe [facility] HEPATITIS B CORE ANTIBODY IGM 2023-12-10 05:50:00 Dennis Briscoe Jaden [facility] AC PANEL 21 + LACTIC ACID 2023-12-10 05:50:00 Dennis Briscoe [facility] HIV 1/2 AG-AB WITH REFLEX 2023-12-10 05:50:00 Dennis Briscoe Jaden [facility] MRSA / MSSA SCREEN BY SERINA OCAMPO 2023-12-10 05:50:00 Dennis Briscoe Jaden [facility] CT ABDOMEN PELVIS W CONTRAST 2023-12-10 02:50:13 Jd Sky [facility] HB ECG ROUTINE & RHYTHM STRIP 2023-12-10 01:55:05 Jd Sky [facility] URINE DRUG (IMMUNOASSAY) - COMPREHENSIVE DRUG SCREEN 2023-12-10 01:51:00 Jd Sky [facility] CK (CREATINE KINASE) + MB 2023-12-10 01:38:00 Jd Sky [facility] LIPASE 2023-12-10 01:38:00 Jd Sky [facility] TEST, SERUM 2023-12-10 01:38:00 Jd Sky [facility] TROPONIN I 2023-12-10 01:38:00 Jd Sky [facility] COMP. METABOLIC PANEL ([id number]) 2023-12-10 01:38:00 Jd Sky [facility] IRON PANEL 2023-12-10 01:38:00 Dennis Briscoe [facility] SALICYLATE 2023-12-10 01:38:00 Dennis Briscoe [facility] ETHANOL 2023-12-10 01:38:00 Jd Sky [facility] CBC WITH DIFF 2023-12-10 01:38:00 Jd Sky [facility] POCT TEST 2023-06-29 06:44:00 Gualberto aVn [facility] LIPASE 2023-06-29 06:43:00 Kojo Van U [facility] COMP. METABOLIC PANEL (17802) 2023-06-29 06:43:00 Kojo Van [facility] CBC WITH DIFF 2023-06-29 06:43:00 Kojo Van [facility] FIBRINOGEN 2023-06-29 06:43:00 Kojo Van U [facility] URINALYSIS 2023-06-29 06:43:00 Kojo Van U [facility] NOTICE OF PRIVACY PRACTICES 2023-06-29 05:56:07 Doctor Unassigned, Harrah [facility] Encounters Start Date/Time End Date/Time Encounter Type Admission Type Attending [facility] Facility Care Department Encounter ID Source 2022-12-31 11:25:24 Inpatient [facility] [id number] [facility] 2022-12-21 09:41:14 Inpatient [facility] [id number] [facility] 2024-05-25 07:42:28 2024-05-25 23:59:00 Hospital Encounter Kamaljit Ramirez [facility] 1.2.840.114 350.1.13.10 4.2.7.2.686 [id number] [facility] 2024-05-20 10:17:00 2024-05-20 12:58:00 Emergency Desmond Mcintoshdale Kenneth [facility] [id number] 350.1.13.10 4.2.7.2.686 [id number] [facility] 2024-03-21 14:15:00 2024-03-21 14:30:53 Office Visit Kamaljit Ramirez [facility] [id number] 350.1.13.10 4.2.7.2.686 [id number] [facility] 2024-03-14 09:26:54 2024-03-14 23:59:00 [facility] En[facility] 1.2.840.114 350.1.13.10 4.2.7.2.686 [id number] [facility] 2024-02-07 08:45:00 2024-02-07 09:00:00 Deck Builder Visit Pob, Adc Lab Main Kamaljit Ramirez [facility] [id number] 350.1.13.10 4.2.7.2.686 [id number] [facility] 2024-01-26 08:00:00 2024-01-26 09:00:36 Office Visit Kamaljit Ramirez [facility] 1.2.840.114 350.1.13.10 4.2.7.2.686 [id number] [facility] 2024-01-12 13:50:00 2024-01-12 23:59:00 Hospital Encounter Radiology [facility] 1.2.840.114 350.1.13.10 4.2.7.2.686 [id number] [facility] 2023-12-13 00:00:00 2023-12-13 00:00:00 Transition of Care GómezJohnathon judgeJennyfer SHEARNu RODO GREWAL 1.2.840.114 350.1.13.10 4.2.7.2.686 [id number] [facility] 2023-12-09 19:18:00 2023-12-11 17:33:00 Inpatient Ronaldo MIKI AVALOSAN [facility] [id number] [facility] 2023-12-09 19:18:00 2023-12-11 17:33:00 Hospital Encounter Jake Davis, Jd Maxwell, Irais Castro, Bill Bishop [facility] 1..840.114 350.1.13.10 4.2.7.2.686 [id number] [facility] 2023-10-25 00:00:00 2023-10-25 00:00:00 Outpatient CHRETIEN_F [facility] [id number] 2023-10-12 17:13:00 2023-10-12 19:25:00 Emergency ER Eri Parra [facility] [id number] [facility] 2023-06-29 01:04:00 2023-06-29 04:06:00 Emergency X KOJO VAN [facility] ERT [id number] [facility] 2023-06-29 01:04:00 2023-06-29 04:06:00 Emergency Kojo aVn [facility] 1.2.840.114 350.1.13.10 4.2.7.2.686 [id number] [facility] 2023-05-01 20:38:00 2023-05-01 21:20:00 Emergency ER STEFFI ADLER [facility] [id number] [facility] 2022-12-13 22:46:00 2022-12-13 23:31:00 Emergency ER Eri Parra [facility] [id number] [facility] 2022-09-30 17:01:00 2022-09-30 20:02:00 Emergency ER CARMEN BARTLETT [facility] [id number] [facility] 2022-05-28 00:30:00 2022-05-28 01:30:00 Emergency ER WENDY CARY [facility] [id number] [facility] 2022-04-13 21:03:00 2022-04-14 00:31:00 Emergency ER STEFFI ADLER [facility] [id number] [facility] 2022-02-28 13:28:00 2022-02-28 14:14:00 Emergency ER STEFFI ADLER [facility] [id number] [facility] 2022-01-26 06:27:00 2022-01-26 08:04:00 Emergency ER CIRO SALCIDO [facility] [id number] [facility] 2021-11-30 20:35:00 2021-11-30 21:02:00 Emergency ER SIDNEY CHAIREZ [facility] [id number] [facility] 2021-10-03 12:06:00 2021-10-03 12:44:00 Emergency ER YONI SANDOVAL [facility] [id number] [facility] 2021-08-09 12:31:00 2021-08-09 13:27:00 Emergency ER JAM HOWARD [facility] [id number] [facility] 2021-05-24 14:21:00 2021-05-24 16:55:00 Emergency ER YONI SANDOVAL [facility] [id number] [facility] 2017-08-11 22:05:00 2017-08-11 23:21:00 Emergency ER BENJIE AGARWAL [facility] [id number] [facility] 2017-01-15 18:29:00 2017-01-15 19:24:00 Emergency ER TYRONE SZYMANSKI [facility] [id number] [facility] Results Test Description Test Time Test Comments Results Result Co mments Source [facility] ([id number])2024-05-20 15:55:54* Test Item Value Reference Range Interpretation Comme nts NA (test code = 7012513193) 139 mmol/L 135-145 K (test code = 7935332439) 4.3 mmol/L 3.5-5.0 CL (test code = 1652239986) 99 mmol/L 98-108 CO2 TOTAL (test code = 1548502466) 30 mmol/L 23-31 AGAP (test code = 5589902891) 10 2-16 BUN (test code = 9600482878) 10 mg/dL 7-23 GLUCOSE (test code = 2281206205) 97 mg/dL 70-110 CREATININE (test code = 2160-0) 0.69 mg/dL 0.50-1.04 TOTAL BILI (test code = 6314314774) 0.5 mg/dL 0.1-1.1 CALCIUM (test code = 0077614452) 8.8 mg/dL 8.6-10.6 T PROTEIN (test code = 6067968934) 7.8 g/dL 6.3-8.2 ALBUMIN (test code = 6620938362) 4.1 g/dL 3.5-5.0 ALK PHOS (test code = 3690297931) 80 U/L 34-122 ALTv (test code = 1742-6) 15 U/L 5-35 AST(SGOT) (test code = 8500456372) 21 U/L 13-40 eGFR (test code = 71222-8) 117.7 mL/min/1.73m2 CKD-EPI eGFR (20 21). Assuming creatinine has been stable day-to-day for at least three months, the eGFR indicates Category G1 (>= 90 mL/min/1.73 m2) [facility] WITH [id number] 15:43:48* Test Item Value Reference Range Interpretation Comme nts WBC (test code = 6690-2) 9.57 4.30-11.10 RBC (test code = 789-8) 4.13 3.93-5.25 HGB (test code = 718-7) 13.3 g/dL 11.6-15.0 HCT (test code = 4544-3) 40.8 % 35.7-45.2 MCV (test code = 787-2) 98.8 fL 80.6-95.5 H MCH (test code = 785-6) 32.2 pg 25.9-32.8 MCHC (test code = 786-4) 32.6 g/dL 31.6-35.1 RDW-SD (test code = 59921-7) 47.0 fL 39.0-49.9 RDW-CV (test code = 788-0) 13.0 % 12.0-15.5 PLT (test code = 777-3) 348 166-358 MPV (test code = 40847-7) 9.8 fL 9.5-12.9 NRBC/100 WBC (test code = 0116243409) 0.0 0.0-10.0 NRBC x10^3 (test code = 6781044396) See_Comment [Automated Seawinda ge] The system which generated this result transmitted reference range: 10*3/?L. The reference range was not used to interpret this result as normal/abnormal. GRAN MAT (NEUT) % (test code = 770-8) 37.3 % IMM GRAN % (test code = 0208062355) 0.20 % LYMPH % (test code = 736-9) 36.9 % MONO % (test code = 5905-5) 14.1 % EOS % (test code = 713-8) 10.8 % BASO % (test code = 706-2) 0.7 % GRAN MAT x10^3(ANC) (test code = 7919946609) 3.57 10*3/uL 1.88-7.09 IMM GRAN x10^3 (test code = 0844520709) 0.00-0.06 LYMPH x10^3 (test code = 731-0) 3.53 10*3/uL 1.32-3.29 H MONO x10^3 (test code = 742-7) 1.35 10*3/uL 0.33-0.92 H EOS x10^3 (test code = 711-2) 1.03 10*3/uL 0.03-0.39 H BASO x10^3 (test code = 704-7) 0.07 10*3/uL 0.01-0.07 Lab Interpretation (test code = 83015-1) [facility] [id number] 15:42:00* Test Item Value Reference Range Interpretation Comme nts POCT PREG (test code = 1605) Negative On board controls acceptable with C Line (test code = 3574) Yes POCT PREG LOT # (test code = 3575) [id number] POCT PREG TEST DATE ( test code = 3576) 2025-02-23 Lab Interpretation (test cod e = 95485-0) Normal [facility] HospitalIR SPINAL NERVE ROOT BLOCK/TRANSFORAMINAL LUMBAR/SACRUM WITH [id number] 16:38:43FLUOROSCOPY GUIDED TRANSFORAMINAL EPIDURAL STEROID INJECTION. HISTORY: ?L L5S1 herniated disc with S1 radiculopathy SEDATION: Local anesthesia. ATTENDING PRESENCE: ?As the attending radiologist, I actively participatedand was physically present in the room during the entire procedure. ? RADIATION DOSE: 2.8 mGy. TECHNIQUE: The risks, benefits and alternatives were discussed and informedconsent wasobtained. Prior to beginning the procedure, Plummer Protocolwas performed to confirm the patient's identity and the planned procedure. Maximum sterile barriers including cap, mask, hand hygiene, sterile gloves,sterile gown, large sterile drape and cutaneous antisepsis were used. Pain assessment was performed and pain mapping was performed on a dermatomemap. The patient was placed in the prone position and the lower back wassterilely prepped and draped. Using fluoroscopic guidance, an entry sitewas marked and 1% buffered lidocaine was administered subcutaneously forlocal anesthesia. Under fluoroscopic guidance, a 22-gauge spinal needle was advanced andpositioned in the L5-S1 neural foramenon the left, 1 cc ofpreservative-free 180 Omnipaque was injected into the foramen, no vascularstructure was demonstrated. Then 1 cc of dexamethasone (10 mg) and 1 cc ofBupivacaine 0.25% were injected. The needle was removed and steriledressing was applied. The patient tolerated the procedure well withoutdifficulty and had no immediate postprocedural complications. ESTIMATED BLOOD LOSS: Minimal. CO NDITION: Stable. DISCHARGED TO: Patient care division for post procedure monitoring. FINDINGS: Spotfluoroscopic images demonstrates needles placement at the L5-S1 neuralforamen on the left contrast injection demonstrated opacification of theepidural space as well as the dural sleeve along the L5 ne rve roots.[facility]CT [facility] CONTRAST 2024-01-12 20:09:04CT LUMBAR SPINE WO CONTRAST HISTORY: lower back pain. COMPARISON: None. TECHNIQUE: Axial images of the lumbar spine were obtained withoutadministration of IV contrast. Coronal and sagittal images were reformatted. FINDINGS: The lumbar curvature is normal. There is grade 1 retrolisthesis of L5 [id number] disc protrusion at this level. The vertebral bodies are normal inheight and in normal alignment otherwise. No facet fracture or subluxationis present. Mild disc space narrowing at the posterior aspect of the L5-Y6yaeon. Disc spaces are preserved otherwise. Intact cortical margins of the sacrumand iliac bones.[facility] Metabolic Panel (NA, K, CL, CO2, GLUCOSE, BUN, CREATININE, CA)2023-12-11 11:41:05* Test Item Value Reference Range Interpretation Comme nts NA (test code = 9030712525) 139 mmol/L 135-145 K (test code = 2671474426) 3.8 mmol/L 3.5-5.0 CL (test code = 6269161485) 108 mmol/L 98-108 CO2 TOTAL (test code = 1318210369) 27 mmol/L 23-31 AGAP (test code = 7447249928) 4 2-16 BUN (test code = 6914595827) 2 mg/dL 7-23 L GLUCOSE (test code = 9922207192) 88 mg/dL 70-110 CREATININE (test code = 2160-0) 0.45 mg/dL 0.50-1.04 L CALCIUM (test code = 7165763399) 8.4 mg/dL 8.6-10.6 L eGFR (test code = 09759-8) 130.5 mL/min/1.73m2 CKD-EPI eGFR (2020). Assuming creatinine has been stable day-to-day for at least three months, the eGFR indicates Category G1 (>= 90 mL/min/1.73 m2) Lab Interpretation (test code = 25003-2) Abnormal [facility] HospitalIron [id number] 07:48:25* Test Item Value Reference Range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
[2024-06-14] MEDS ORDERED: IBUPROFEN 400 MG TAB ONE (22:41)
[2024-06-14] MEDS ORDERED: ACETAMINOPHEN 500 MG TAB ONE (22:41)
[2024-06-14 23:34] LABS: Specific Gravity > 1.030 (1.005-1.030)
[2024-06-14 23:36] LABS: Specific Gravity > 1.030 (1.005-1.030); Urine Bacteria >50 /HPF (<20); Urine Bilirubin NEGATIVE (Negative); Urine Blood Negative (Negative); Urine Clarity Extremely Turbid (Clear); Urine Color Yellow (Yellow); Urine Culture Reflex Order REFLEXED; Urine Glucose NEGATIVE (Negative); Urine Ketones TRACE (Negative); Urine Micro Reflex YN NO BILL MICROSCOPIC; Urine Mucus 4+ /HPF (None Seen); Urine Nitrite 2+ (Negative); Urine Protein 1+ (Negative); Urine RBC None Seen /HPF (None Seen); Urine Urobilinogen 1+ (Normal); Urine WBC 20-50 /HPF (<5); Urine pH 5.5 (5.0-7.0)
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
[2024-06-15 01:19] VITALS: TEMP 98.2
[2024-06-15 01:20] VITALS: O2SAT 98
[2024-06-15 01:22] VITALS: BP 115/70
--- NOTE | 2024-06-15 10:21 | RAD REPORT ---
EXAM DESCRIPTION: RAD - Tib Fib Left - 06/14/2024 10:41 pm CLINICAL HISTORY: 33 years Female Left tibia fibula pain. COMPARISON: None. TECHNIQUE: 2 view study of left tibia fibula were performed. FINDINGS: No acute fractures seen. Normal bony mineralization. No erosive or lytic lesions seen. IMPRESSION: No acute fracture or dislocation seen. Electronically signed by: Denita Pinto MD 06/14/2024 11:05 PM CDT RP Due to temporary technical issues with the PACS/Fluency reporting system, reports are being signed by the in house radiologist without review as a courtesy to ensure prompt reporting. The interpreting r adiologist is fully responsible for the content of the report.
--- NOTE | 2024-06-15 10:25 | RAD REPORT ---
EXAM DESCRIPTION: RAD - Hand Right 3 View - 06/14/2024 10:41 pm CLINICAL HISTORY: 33 years, Female, Right hand pain. COMPARISON: None. FINDINGS: 3 X-ray views of the right hand (frontal, lateral and oblique projections) were performed. Bones: No areas of acute bony injuries were demonstrated. Carpal bones demonstrate to be unremarkable . Soft tissues: No significant soft tissue swelling. Joints: No gross articular abnormality is identified. Others: There are no gross intraosseous lesions. No periosteal reaction were seen. No radiopaque foreign body. IMPRESSION: No acute bony injuries were demonstrated. Electronically signed by: Jose Irwin MD 06/14/2024 11:03 PM CDT RP Due to temporary technical issues with the PACS/Fluency reporting system, reports are being signed by the in house radiologist without review as a courtesy to ensure prompt reporting. The interpreting r adiologist is fully responsible for the content of the report.
--- NOTE | 2024-06-15 10:30 | RAD REPORT ---
EXAM DESCRIPTION: RAD - Forearm Right - 06/14/2024 10:41 pm CLINICAL HISTORY: 33 years, Female, Right forearm pain. COMPARISON: None. FINDINGS: 2 X-ray views of the right forearm (frontal and lateral projections) were performed. Bones: No areas of acute bony injuries were demonstrated. Soft tissues: No significant soft tissue swelling. Joints: No gross articular abnormality is identified. Others: There are no gross intraosseous lesions. No periosteal reaction were seen. IMPRESSION: Unremarkable examination of the right forearm. Electronically signed by: Jose Irwin MD 06/14/2024 11:03 PM CDT RP Due to temporary technical issues with the PACS/Fluency reporting system, reports are being signed by the in house radiologist without review as a courtesy to ensure prompt reporting. The interpreting r adiologist is fully responsible for the content of the report.
--- NOTE | 2024-06-15 10:31 | RAD REPORT ---
EXAM DESCRIPTION: CT - Head C Spine Cap Wo Con - 06/15/2024 6:06 am CLINICAL HISTORY: 33 years Female head and neck injuries TECHNIQUE: Contiguous axial CT images obtained through the brain, cervical spine, chest, abdomen, an d pelvis without IV contrast. Coronal and sagittal reformatted images provided. This CT exam was performed according to our departmental dose-optimization program, which includes on e or more of the following dose reduction techniques: automated exposure control, adjustment of the m A and/or kV according to patient size, and/or use of iterative reconstruction technique. COMPARISON: No prior exams provided for comparison. FINDINGS: There is no acute skull fracture, intracranial hemorrhage, extraaxial collection, or acute transcortical infarction. The ventricles are normal in size and contour without mass effect or midli ne shift. The visualized paranasal sinuses, tympanomastoid cavities, and orbits are normal. There is no acute cervical fracture. Moderate reversal of the normal cervical lordosis with slight re trolisthesis of C4 on C5 and C5 on C6. There is mild degenerative disc disease at C4-C6 without aggre ssive osseous lesion. No acute paraspinal soft tissue abnormality in the cervical spine. Degenerative changes result in mild central canal stenosis at C3-C6. Mild bilateral neural foraminal narrowing at C5-C6 and C6-C7. The lungs are clear without focal consolidation, effusion, or pneumothorax. The central airways are p atent. The heart is normal in size without pericardial effusion. The aorta and central pulmonary vasculature are normal in caliber. No lymphadenopathy in the chest. No acute injury in the thoracic or lumbar spine. No thoracic or lumbar stenosis or acute paraspinal h emorrhage. The unenhanced liver, biliary tree, gallbladder, pancreas, spleen, adrenal glands, kidneys, uterus, o varies, and urinary bladder are normal. There is no bowel inflammation, obstruction, free intraperitoneal air, or ascites. The appendix is no rmal. IMPRESSION: No acute intracranial injury. No acute cervical spine injury. Chronic degenerative changes result in mild central canal stenosis at C3-C6. No acute injury in the chest, abdomen, or pelvis. Electronically signed by: Niki Raines MD 06/15/2024 12:19 AM CDT RP Due to temporary technical issues with the PACS/Fluency reporting system, reports are being signed by the in house radiologist without review as a courtesy to ensure prompt reporting. The interpreting r adiologist is fully responsible for the content of the report.
== END 2024-06-15 00:35 | disposition home or self-care (01) ==
LOC: ER 22:11
DX: S50.11XA Contusion of right forearm, initial encounter (principal); S00.83XA Contusion of other part of head, initial encounter; S80.12XA Contusion of left lower leg, initial encounter; M25.531 Pain in right wrist; M79.641 Pain in right hand; M54.2 Cervicalgia
CPT/HCPCS: 70450; 71250; 72125; 81001; 81025; 87077; 87086; 87088; 87186; 99284